=== PATIENT | female | born 1970 | race Caucasian/White ===

== ENCOUNTER → 2018-02-20 08:48 | Outpatient (CLI) | payer OTHER, SELFPAY ==
[2018-02-20 10:04] LABS: Add Manual Diff / Slide Review NO; Basophils Percent Auto 1.1 % (0-2); Eosinophils Percent Auto 2.3 % (2-4); Hematocrit 40.9 % (36-46); Hemoglobin 14.2 g/dL (12.0-16.0); Mean Corpuscular HGB Conc 34.6 % (30-36); Mean Corpuscular Hemoglobin 29.8 PG (26-34); Mean Corpuscular Volume 85.9 fL (80-100); Monocytes Percent Auto 6.1 % (3-14); Neutrophils Absolute Auto 4300 /uL (3000-5900); Neutrophils Percent Auto 63.5 % (50-75); Platelet Count 333 X10^3/uL (150-400); Red Blood Cell Count 4.76 X10^6/uL (4.0-5.2); Red Cell Distribution Width 12.4 % (11.6-14.8); White Blood Cell Count 6.8 X10^3/uL (4.5-11.0)
[2018-02-20 10:12] LABS: Alanine Aminotransferase 15 IU/L (9-52); Albumin 4.3 g/dL (3.5-5.0); Albumin Globulin Ratio 1.3 (1.0-2.8); Alkaline Phosphatase 65 U/L (38-126); Aspartate Aminotransferase 16 IU/L (14-36); BUN Creatinine Ratio 15.7 (6-22); Bilirubin Total 0.5 mg/dL (0.2-1.3); Bilirubin Unconjugated 0.2 mg/dL (0.0-1.1); Blood Urea Nitrogen 11 mg/dL (7-17); Calcium 9.1 mg/dL (8.4-10.2); Carbon Dioxide 28 mmol/L (22-32); Chloride 103 mmol/L (98-107); Estimated Glomerular Filt Rate > 60.0 mL/min (>60); Globulin 3.4 g/dL (1.7-4.1); Glucose 93 mg/dL (70-100); HEMOLYSIS < 15 (0-50); Potassium 4.3 mmol/L (3.4-5.1); Sodium 140 mmol/L (137-145); Total Protein 7.7 g/dL (6.3-8.2)
[2018-02-20 11:58] LABS: Hep C Virus Ab w/Reflex Quant NEGATIVE s/c (NEGATIVE); Hepatitis B Surface Antigen NEGATIVE s/c (NEGATIVE)
[2018-02-21 14:01] LABS: Hepatitis B Core Antibody Nonreactive (Nonreactive); Hepatitis B Surf Ab Qualitativ Nonreactive (Nonreactive)
[2018-02-23 13:29] LABS: QuantiFERON TB Negative (Negative)
== END ==
PROVIDERS: Family Provider Physician Assistant; PCP Physician Assistant; Visit Provider Dermatology
DX: L40.0 Psoriasis vulgaris (principal); L40.59 Other psoriatic arthropathy; L40.8 Other psoriasis
CPT/HCPCS: 36415; 80053; 80076; 85025; 86480; 86704; 86706; 86803; 87340

== ENCOUNTER → 2018-04-02 09:28 | Outpatient (CLI) | payer OTHER, SELFPAY ==
--- NOTE | 2018-04-02 09:29 | DI.MG.S_ITS ---
BILATERAL DIGITAL SCREENING MAMMOGRAM 3D/2D WITH CAD: 04/02/2018 CLINICAL: Routine screening. Comparison is made to exams dated: 03/06/2017 mammogram, 12/10/2014 mammogram, 12/07/2013 mammogram, and 12/04/2012 mammogram - [facility]. The tissue of both breasts is extremely dense, which lowers the sensitivity of mammography. Current study was also evaluated with a Computer Aided Detection (CAD) system. There is an asymmetry in the left breast middle depth central to the nipple seen on the craniocaudal view only. Finding is best noted on tomographic CC slice 36/79. There is possible architectural distortion associated with the asymmetry. No other significant masses, calcifications, or other findings are seen in either breast. IMPRESSION: INCOMPLETE: NEEDS ADDITIONAL IMAGING EVALUATION The asymmetry in the left breast is indeterminate. Additional views with possible ultrasound are recommended. This exam was interpreted at Station ID: [id number]. NOTE: For mammograms, a report in lay terms will be sent to the patient. Approximately 15% of breast malignancies will not be visualized mammographically. In the management of a palpable breast mass, a negative mammogram must not discourage biopsy of a clinically suspicious lesion. Electronically Signed By: Saran Stewart M.D. ecl/:04/03/2018 05:06:27 letter sent: Additional Imaging Needed ACR BI-RADS Category 0: Incomplete 3340F
== END ==
PROVIDERS: Family Provider Physician Assistant; PCP Physician Assistant; Visit Provider Physician Assistant
DX: Z12.31 Encounter for screening mammogram for malignant neoplasm of breast (principal)
CPT/HCPCS: 77063; 77067

== ENCOUNTER → 2018-04-18 09:19 | Outpatient (CLI) | payer OTHER, SELFPAY ==
--- NOTE | 2018-04-18 | DI.MG.S_ITS ---
UNILATERAL LEFT DIGITAL DIAGNOSTIC MAMMOGRAM 3D/2D WITH ADDITIONAL VIEWS: 04/18/2018 CLINICAL: Additional evaluation requested from prior study. Comparison is made to exams dated: 04/02/2018 mammogram, 03/06/2017 mammogram, and 12/10/2014 mammogram - [facility]. The tissue of left breast is extremely dense, which lowers the sensitivity of mammography. There is a benign oval asymmetry with an indistinct margin in the left breast middle depth central to the nipple seen on the craniocaudal view only. This is not seen in additional views. No other significant masses or calcifications are seen in the breast. IMPRESSION: There is no mammographic evidence of malignancy. A 1 year screening mammogram is recommended. This exam was interpreted at Station ID: [id number]. NOTE: For mammograms, a report in lay terms will be sent to the patient. Approximately 15% of breast malignancies will not be visualized mammographically. In the management of a palpable breast mass, a negative mammogram must not discourage biopsy of a clinically suspicious lesion. Electronically Signed By: Rudi kelly/jenna:04/18/2018 10:10:24 letter sent: Normal Exam ACR BI-RADS Category 2: Benign Finding(s) 3342F
== END ==
PROVIDERS: PCP Physician Assistant; Visit Provider Physician Assistant
DX: R92.8 Other abnormal and inconclusive findings on diagnostic imaging of breast (principal)
CPT/HCPCS: 77065; G0279

== ENCOUNTER → 2019-04-07 17:21 | Outpatient (CLI) | payer OTHER, SELFPAY ==
--- NOTE | 2019-04-07 | DI.MG.S_ITS ---
BILATERAL DIGITAL SCREENING MAMMOGRAM 3D/2D WITH CAD: 04/07/2019 CLINICAL: Routine screening. Comparison is made to exams dated: 04/02/2018 mammogram, 03/06/2017 mammogram, and 12/10/2014 mammogram - [facility]. The tissue of both breasts is heterogeneously dense. This may lower the sensitivity of mammography. Current study was also evaluated with a Computer Aided Detection (CAD) system. No significant masses, calcifications, or other findings are seen in either breast. There has been no significant interval change. IMPRESSION: NEGATIVE There is no mammographic evidence of malignancy. A 1 year screening mammogram is recommended. This exam was interpreted at Station ID: [id number]. NOTE: For mammograms, a report in lay terms will be sent to the patient. Approximately 15% of breast malignancies will not be visualized mammographically. In the management of a palpable breast mass, a negative mammogram must not discourage biopsy of a clinically suspicious lesion. Electronically Signed By: Rudi kelly/jenna:04/08/2019 11:50:31 letter sent: Normal Exam ACR BI-RADS Category 1: Negative 3341F
== END ==
PROVIDERS: PCP Physician Assistant; Visit Provider Physician Assistant
DX: Z12.31 Encounter for screening mammogram for malignant neoplasm of breast (principal)
CPT/HCPCS: 77063; 77067

== ENCOUNTER → 2020-03-03 08:52 | Outpatient (CLI) | payer OTHER, SELFPAY ==
[2020-03-03 10:34] LABS: Add Manual Diff / Slide Review NO; Basophils Absolute Auto 100 /uL (0-100); Basophils Percent Auto 0.9 % (0-2); Eosinophils Absolute Auto 200 /uL (0-450); Eosinophils Percent Auto 2.4 % (2-4); Hemoglobin 13.8 g/dL (12.0-16.0); Lymphocytes Absolute Auto 2100 /uL (1100-4500); Lymphocytes Percent Auto 24.7 % (25-40); Mean Corpuscular HGB Conc 33.8 % (30-36); Mean Corpuscular Hemoglobin 28.6 PG (26-34); Mean Corpuscular Volume 84.6 fL (80-100); Monocytes Absolute Auto 600 /uL (0-900); Neutrophils Absolute Auto 5500 /uL (1500-7000); Platelet Count 336 X10^3/uL (150-400); Red Blood Cell Count 4.84 X10^6/uL (4.0-5.2); Red Cell Distribution Width 12.6 % (11.6-14.8); White Blood Cell Count 8.4 X10^3/uL (4.5-11.0)
[2020-03-03 10:48] LABS: Alanine Aminotransferase 12 IU/L (<35); Albumin 4.2 g/dL (3.5-5.0); Albumin Globulin Ratio 1.2 (1.0-2.8); Alkaline Phosphatase 101 U/L (38-126); Aspartate Aminotransferase 21 IU/L (14-36); BUN Creatinine Ratio 12.9 (6-22); Bilirubin Total 0.5 mg/dL (0.2-1.3); Blood Urea Nitrogen 9 mg/dL (7-17); Calcium 9.3 mg/dL (8.4-10.2); Carbon Dioxide 24 mmol/L (22-32); Chloride 103 mmol/L (98-107); Cholesterol 252 mg/dL (140-199); Estimated Glomerular Filt Rate > 60.0 mL/min (>60); Globulin 3.5 g/dL (1.7-4.1); Glucose 88 mg/dL (70-100); HDL Cholesterol 60 mg/dL (40-60); HEMOLYSIS < 15 (0-50); LDL Cholesterol Calculated 150 mg/dL (<100); Potassium 4.4 mmol/L (3.4-5.1); Sodium 136 mmol/L (137-145); Total Protein 7.7 g/dL (6.3-8.2); Triglycerides 210 mg/dL (35-150)
[2020-03-03 11:18] LABS: TSH w/ Reflex to FT4 1.07 uIU/mL (0.47-4.68)
== END ==
PROVIDERS: PCP Family Medicine; Referring Provider Family Medicine; Visit Provider Family Medicine
DX: E78.2 Mixed hyperlipidemia (principal); Z13.29 Encounter for screening for other suspected endocrine disorder
CPT/HCPCS: 36415; 80053; 80061; 84443; 85025

== ENCOUNTER → 2020-05-25 16:07 | Outpatient (CLI) | payer OTHER, SELFPAY ==
--- NOTE | 2020-05-25 16:09 | DI.MG.S_ITS ---
BILATERAL DIGITAL SCREENING MAMMOGRAM 3D/2D WITH CAD: 05/25/2020 CLINICAL: Routine screening. Comparison is made to exams dated: 04/07/2019 mammogram, 04/18/2018 mammogram, 04/02/2018 mammogram, and 03/06/2017 mammogram - [facility]. The tissue of both breasts is heterogeneously dense. This may lower the sensitivity of mammography. Current study was also evaluated with a Computer Aided Detection (CAD) system. No significant masses, calcifications, or other findings are seen in either breast. There has been no significant interval change. IMPRESSION: NEGATIVE There is no mammographic evidence of malignancy. A 1 year screening mammogram is recommended. This exam was interpreted at Station ID: [id number]. NOTE: For mammograms, a report in lay terms will be sent to the patient. Approximately 15% of breast malignancies will not be visualized mammographically. In the management of a palpable breast mass, a negative mammogram must not discourage biopsy of a clinically suspicious lesion. Electronically Signed By: Remi leon/jenna:05/25/2020 16:45:57 letter sent: Normal Exam ACR BI-RADS Category 1: Negative 3341F
== END ==
PROVIDERS: PCP Family Medicine; Referring Provider Family Medicine; Visit Provider Family Medicine
DX: Z12.31 Encounter for screening mammogram for malignant neoplasm of breast (principal)
CPT/HCPCS: 77063; 77067

== ENCOUNTER → 2021-05-30 10:56 | Outpatient (CLI) | payer OTHER, SELFPAY ==
--- NOTE | 2021-05-30 | DI.MG.S_ITS ---
BILATERAL DIGITAL SCREENING MAMMOGRAM 3D/2D WITH CAD: 05/30/2021 CLINICAL: Routine screening. Comparison is made to exams dated: 05/25/2020 mammogram, 04/07/2019 mammogram, and 04/02/2018 mammogram - [facility]. There are scattered fibroglandular elements in both breasts. Current study was also evaluated with a Computer Aided Detection (CAD) system. No significant masses, calcifications, or other findings are seen in either breast. There has been no significant interval change. IMPRESSION: NEGATIVE There is no mammographic evidence of malignancy. A 1 year screening mammogram is recommended. This exam was interpreted at Station ID: [id number]. NOTE: For mammograms, a report in lay terms will be sent to the patient. Approximately 15% of breast malignancies will not be visualized mammographically. In the management of a palpable breast mass, a negative mammogram must not discourage biopsy of a clinically suspicious lesion. Electronically Signed By: Cinthia burden/jenna:05/30/2021 12:32:58 letter sent: Normal Exam ACR BI-RADS Category 1: Negative 3341F
== END ==
PROVIDERS: PCP Family Medicine; Referring Provider Family Medicine; Visit Provider Family Medicine
DX: Z12.31 Encounter for screening mammogram for malignant neoplasm of breast (principal)
CPT/HCPCS: 77063; 77067

== ENCOUNTER → 2022-06-05 07:51 | Outpatient (CLI) | payer OTHER, SELFPAY ==
--- NOTE | 2022-06-05 | DI.MG.S_ITS ---
BILATERAL DIGITAL SCREENING MAMMOGRAM 3D/2D WITH CAD: 06/05/2022 CLINICAL: Routine screening. Comparison is made to exams dated: 05/30/2021 mammogram, 05/25/2020 mammogram, and 04/07/2019 mammogram - [facility]. Both breasts are heterogeneously dense, which may obscure small masses (category c / 51-75% glandular tissue). Current study was also evaluated with a Computer Aided Detection (CAD) system. No significant masses, calcifications, or other findings are seen in either breast. There has been no significant interval change. IMPRESSION: NEGATIVE There is no mammographic evidence of malignancy. A 1 year screening mammogram is recommended. Based on the Tyrer Cuzick model (a risk assessment model) the patient's lifetime risk is 11.6% and her 10 year risk is 2.8%. According to the ACR, ACS, and NCCN guidelines, an annual breast MRI exam along with mammogram is recommended if the patient's lifetime risk is 20% or greater. This exam was interpreted at Station ID: [id number]. NOTE: For mammograms, a report in lay terms will be sent to the patient. Approximately 15% of breast malignancies will not be visualized mammographically. In the management of a palpable breast mass, a negative mammogram must not discourage biopsy of a clinically suspicious lesion. Electronically Signed By: Km miranda/jenna:06/05/2022 08:36:51 letter sent: Normal Exam ACR BI-RADS Category 1: Negative 3341F
== END ==
PROVIDERS: PCP Family Medicine; Referring Provider Family Medicine; Visit Provider Family Medicine
DX: Z12.31 Encounter for screening mammogram for malignant neoplasm of breast (principal)
CPT/HCPCS: 77063; 77067

== ENCOUNTER → 2022-07-20 09:40 | Outpatient (CLI) | payer OTHER, SELFPAY ==
[2022-07-20 10:58] LABS: COVID19 -Nasal RAPID Negative (Negative)
== END ==
PROVIDERS: PCP Family Medicine; Visit Provider Surgery
DX: Z01.812 Encounter for preprocedural laboratory examination (principal); Z20.822 Contact with and (suspected) exposure to COVID-19
CPT/HCPCS: 87635; C9803

== ENCOUNTER 2022-07-23 11:29 | Day surgery (SDC) | payer OTHER, SELFPAY ==
[2022-07-23 11:49] VITALS: BP 137/83; PULSE 85; RESP 16; TEMP 36.3; O2SAT 98; BMI 25.4
[2022-07-23] MEDS: LACTATED RINGERS 1,000 ML 42 ML IV (12:11)
--- NOTE | 2022-07-23 12:19 | PM.HP.1 ---
History of Present Illness History of Present Illness Date Patient Seen: 07/23/22 Time Patient Seen: 12:19 Chief complaint: SDC Narrative: Family history of colon cancer. 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 Grandmother Alzheimer disease Mother Cancer Father Parkinsons disease Cancer Social History: household members spouse Tobacco & Substance use: Tobacco type cigarettes Smoking Status Former smoker alcohol intake current alcohol intake frequency holiday/special occasion Substance Use Type does not use Meds Home Medications and Allergies Home Medications Medication Instructions Recorded Confirmed Type Massage Therapy 1 each topical .U1RFAGE #24 ea 08/27/18 04/27/20 Rx fluoxetine 20 mg capsule 20 mg PO QDAY #90 caps 12/27/21 07/23/22 Rx methotrexate sodium 7.5 mg tablet 7.5 mg PO QWEEK #12 tabs 12/27/21 07/23/22 Rx norethindrone acetate 1.5 See Rx Instructions .Route 12/27/21 07/23/22 Rx mg-ethinyl estradiol 30 mcg tablet .COMPLEX #63 tabs (Griselda) calcipotriene 0.005 % topical cream See Rx Instructions .Route 12/28/21 07/23/22 Rx .COMPLEX #60 caps Allergies Allergy/AdvReac Type Severity Reaction Status Date / Time No Known Drug Allergies Allergy Verified 07/23/22 11:22 Review of Systems Review of Systems ROS: Yes All systems reviewed with the patient and are negative except as otherwise documented Exam Vital Signs (past 8 hours): - 07/23/22 11:49 Temperature 97.4 F L Pulse Rate 85 Respiratory Rate 16 Blood Pressure 137/83 Pulse Oximetry 98 Oxygen Delivery Method Room Air Oxygen Delivery Method Room Air Const General: cooperative HENMT Head: normal to inspection Eyes General: appearance normal, both eyes and all related structures Neck Neck: normal visual inspection Chest Chest: normal inspection of the chest Resp Effort & Inspection: normal respiratory effort Cardio Rate: regular rate GI Inspection: normal to inspection Skin General: no rashes or lesions noted Neuro General: patient alert and patient awake Extrem General: normal to inspection and no pedal edema Psych Appearance: grossly normal Assessment & Plan Assessment & Plan narrative: 52-year-old female with a family history of colon cancer. Colonoscopy is pursued today. Time Spent With Patient Critical Care time: I spent a total of [] minutes of critical care time on this patient's care today; this time is exclusive of procedural time.
--- NOTE | 2022-07-23 12:20 | PM.PREOP ---
Pre-operative Note COVID-19 COVID-19 status: Negative Result date/Date tested (Pos, Neg/Pending): 07/20/22 Criteria for continued procedure: Possibility delay results in more complex future surgery or treatment Interval Note History & Physical reviewed/Exam performed by Physician: Yes Changes to H&P: No ASA Class (for procedural sedation): II
--- NOTE | 2022-07-23 12:44 | PM.OP.COLON ---
Operative Date/Time/Diagnoses Date of procedure: 07/23/22 Time of procedure: 12:44 Pre-op diagnosis: Family history of colon cancer Post-op diagnosis: same Procedure & Clinicians Study performed: Colonoscopy Same procedure as scheduled: Yes Indications: Family history of colon cancer Surgeon: Juan Miguel Cabrera Procedure Notes SCOAP/Timeout: Done Procedure in detail: After the risks and benefits were explained, written and verbal informed consent was obtained. The patient was brought into the procedure room and placed into the left lateral decubitus position. Please see anesthesia note for sedation details. Digital rectal examination was accomplished. The scope was introduced into the patient and advanced under direct visualization to the cecum as identified by the appendiceal orifice and ileocecal valve. The scope was slowly withdrawn to carefully examine the mucosa for any defects or lesions. Comprehensive imaging was accomplished throughout the rectum including the dentate line. The colon was decompressed, the scope was then removed from the patient who tolerated the procedure well. Pediatric colonoscope Bowel prep adequate Scope withdrawal time: 8 minutes Sedation minutes: 16 Specimen(s): none sent Complications: none Impression: No significant polyps mass lesions or inflammatory features identified throughout. Slightly tortuous left colon. Grade 1 internal hemorrhoids. Endoscopic diagnosis 1. Grade 1 internal hemorrhoids 2. Otherwise visually unremarkable colonoscopy Post-procedure Plan for aftercare: Repeat colonoscopy 5 years considering family history. Disposition: PACU
[2022-07-23 12:46] VITALS: BP 100/62; PULSE 781; RESP 10; TEMP 36.3; O2SAT 96
[2022-07-23 12:51] VITALS: BP 102/64; PULSE 74; RESP 13; O2SAT 97
[2022-07-23 12:56] VITALS: BP 112/71; PULSE 74; RESP 14; O2SAT 98
[2022-07-23 13:01] VITALS: BP 117/70; PULSE 75; RESP 13; TEMP 36.3; O2SAT 98
[2022-07-23 13:07] VITALS: BP 108/77; PULSE 69; RESP 14; TEMP 36.3; O2SAT 98
== END 2022-07-23 13:18 | disposition home or self-care (01) ==
PROVIDERS: PCP Family Medicine; Referring Provider Internal Medicine Gastroenterology; Visit Provider Internal Medicine Gastroenterology
PROC: 0DJD8ZZ Inspection of Lower Intestinal Tract, Via Natural or Artificial Opening Endoscopic (ICD-10-PCS; CPT 45378; principal; 2022-07-23 12:30)
DX: Z12.11 Encounter for screening for malignant neoplasm of colon (principal); Z80.0 Family history of malignant neoplasm of digestive organs; K64.0 First degree hemorrhoids
CPT/HCPCS: 45378; 81025; J3010

== ENCOUNTER → 2022-12-21 07:02 | Outpatient (CLI) | payer OTHER, SELFPAY ==
[2022-12-21 07:45] LABS: Add Manual Diff / Slide Review NO; Basophils Absolute Auto 100 /uL (0-100); Eosinophils Absolute Auto 100 /uL (0-450); Hematocrit 40.2 % (36-46); Hemoglobin 13.8 g/dL (12.0-16.0); Lymphocytes Absolute Auto 2000 /uL (1100-4500); Mean Corpuscular HGB Conc 34.3 % (30-36); Mean Corpuscular Hemoglobin 28.5 PG (26-34); Monocytes Absolute Auto 500 /uL (0-900); Monocytes Percent Auto 6.5 % (3-14); Neutrophils Absolute Auto 4700 /uL (1500-7000); Neutrophils Percent Auto 63.5 % (50-75); Platelet Count 315 X10^3/uL (150-400); Red Blood Cell Count 4.84 X10^6/uL (4.0-5.2); Red Cell Distribution Width 13.1 % (11.6-14.8); White Blood Cell Count 7.4 X10^3/uL (4.5-11.0)
[2022-12-21 08:19] LABS: Alanine Aminotransferase 16 IU/L (<35); Albumin 3.9 g/dL (3.5-5.0); Albumin Globulin Ratio 1.3 (1.0-2.8); Alkaline Phosphatase 74 U/L (38-126); Aspartate Aminotransferase 19 IU/L (14-36); BUN Creatinine Ratio 8.8 (6-22); Bilirubin Total 0.4 mg/dL (0.2-1.3); Blood Urea Nitrogen 6 mg/dL (7-17); Calcium 8.8 mg/dL (8.4-10.2); Carbon Dioxide 28 mmol/L (22-32); Chloride 102 mmol/L (98-107); Cholesterol 212 mg/dL (140-199); Estimated Glomerular Filt Rate > 60 mL/min (>60); Globulin 3.1 g/dL (1.7-4.1); Glucose 93 mg/dL (70-100); HDL Cholesterol 48 mg/dL (40-60); HEMOLYSIS < 15 (0-50); LDL Cholesterol Calculated 133 mg/dL (<100); Potassium 4.1 mmol/L (3.4-5.1); Sodium 137 mmol/L (137-145); Triglycerides 157 mg/dL (35-150)
[2022-12-21 08:44] LABS: TSH w/ Reflex to FT4 1.33 uIU/mL (0.47-4.68)
== END ==
PROVIDERS: PCP Family Medicine; Referring Provider Family Medicine; Visit Provider Family Medicine
DX: E78.2 Mixed hyperlipidemia (principal); L40.50 Arthropathic psoriasis, unspecified; Z13.29 Encounter for screening for other suspected endocrine disorder; Z79.899 Other long term (current) drug therapy
CPT/HCPCS: 36415; 80053; 80061; 84443; 85025

== ENCOUNTER 2023-01-13 21:21 | Emergency (ER) | payer OTHER, SELFPAY ==
[2023-01-13 21:32] VITALS: BP 165/123; PULSE 89; RESP 16; TEMP 36.7; O2SAT 98; BMI 22.3
[2023-01-13 21:34] VITALS: BP 163/82
--- NOTE | 2023-01-13 21:40 | DI.CT.S_ITS ---
PROCEDURE: CT HEAD/BRAIN WO CON INDICATIONS: headache/double vision TECHNIQUE: Noncontrast 4.5 mm thick angled axial sections acquired from the foramen magnum to the vertex, with coronal and sagittal reformats. For radiation dose reduction, the following was used: automated exposure control, adjustment of mA and/or kV according to patient size. COMPARISON: None. FINDINGS: Image quality: Excellent. CSF spaces: Basal cisterns are patent. No extra-axial fluid collections. Ventricles are normal in size and shape. Brain: No intracranial hemorrhage, mass, or mass effect. Vizcarra-white matter interface appears preserved. Skull and face: Calvarium and visualized facial bones are intact, without suspicious lesions. Sinuses: Visualized sinuses and mastoids are clear. IMPRESSION: 1. No acute intracranial abnormality. Dictated by: Rudi Mccoy M.D. on 01/13/2023 at 22:36 Approved by: Rudi Mccoy M.D. on 01/13/2023 at 22:37
--- NOTE | 2023-01-13 22:13 | ED_ITS ---
HPI - Headache General Chief Complaint: Headache Stated Complaint: T-2 headach/ double vison/ V Time Seen by Provider: 01/13/23 22:09 Source: patient Mode of arrival: Ambulatory Limitations: no limitations History of Present Illness HPI Narrative: Patient is a 52-year-old female. She is a self-reported history of migraine headaches. She does get headaches multiple times a month. Is normally on the right side. She normally takes Excedrin for the headaches. She is been on headache medications in the past but she is had some significant reactions to them. She finds that Excedrin normally takes care of her discomfort. She states yesterday she started to have a headache on the right. She stated that it felt just like her prior migraines. She took the Excedrin and did not completely take the headache away. He stated that earlier today she felt like the headache got somewhat worse. It was the same pain that she had yesterday just worsening. She denied any fevers. No neck pain. She stated that she started to feel like she was having some double vision. Her thought that she was not acting quite normal. They were driving to a wedding when this happened. The patient was able to make it through the wedding ceremony but came to the emergency department afterwards. At the time of my evaluation she states she actually feels much better than what she did prior to the wedding ceremony. Related Data Previous Rx's Medication Instructions Recorded Massage Therapy 1 each topical .V0LKFEM #24 ea 08/27/18 calcipotriene 0.005 % topical cream See Rx Instructions .Route 11/08/22 .COMPLEX #60 caps dextroamphetamine-amphetamine 5 mg See Rx Instructions .Route 01/09/23 tablet .COMPLEX #30 tabs fluoxetine 20 mg capsule 20 mg PO QDAY #90 caps 01/09/23 methotrexate sodium 7.5 mg tablet 7.5 mg PO QWEEK #12 tabs 01/09/23 norethindrone acetate 1.5 See Rx Instructions .Route 01/09/23 mg-ethinyl estradiol 30 mcg tablet .COMPLEX #63 tabs (Griselda) Allergies Allergy/AdvReac Type Severity Reaction Status Date / Time No Known Drug Allergies Allergy Verified 12/11/22 15:28 Review of Systems Constitutional Constitutional: Reports system reviewed and no additional complaints, except as documented Eyes Eyes: Reports system reviewed and no additional complaints, except as documented Integumentary/Breasts Skin/Breast: Reports system reviewed and no additional complaints, except as documented Neurologic Neurologic: Reports system reviewed and no additional complaints, except as documented Hematologic/Lymphatic On Anticoagulants: No Patient History Medical History ADD (attention deficit disorder) (Unknown) 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 Grandmother Alzheimer disease Mother Cancer Father Parkinsons disease Cancer Social History household members: spouse Smoking Status: Former smoker alcohol intake: current substance use type: does not use Smoking Status: Former smoker alcohol intake frequency: holidays/special occasions only Substance Use Type: does not use Exam Initial Vital Signs Initial Vital Signs: Vital Signs Temperature 98.1 F 01/13/23 21:32 Pulse Rate 89 01/13/23 21:32 Respiratory Rate 16 01/13/23 21:32 Blood Pressure 165/123 H 01/13/23 21:32 Pulse Oximetry 98 01/13/23 21:32 Oxygen Delivery Method Room Air 01/13/23 21:32 Const General: cooperative, healthy appearing and comfortable HENNH Head: normal to inspection and normocephalic Resp Effort & Inspection: normal respiratory effort Cardio Rate: regular rate Neuro General: patient alert, patient awake, patient oriented x3 and moves all extremities Cognition: normal cognition Speech: speech normal Gait: normal gait Extrem General: normal to inspection and capillary refill normal Course Orders Ordered: ED Orders 01/13/23 21:40 CT head/brain wo con Stat Vital Signs Vital signs: Vital Signs - 8 hr 01/13/23 21:32 01/13/23 21:34 Temperature 98.1 F Pulse Rate 89 Respiratory Rate 16 Blood Pressure 165/123 H 163/82 H Pulse Oximetry 98 Oxygen Delivery Method Room Air MDM - Headache Imaging Data CT scan - head: Radiologist's Impression: PROCEDURE:? CT HEAD/BRAIN WO CON ? INDICATIONS:? headache/double vision ? TECHNIQUE:? Noncontrast 4.5 mm thick angled axial sections acquired from the foramen magnum to the vertex, with coronal and sagittal reformats.? For radiation dose reduction, the following was used:? automated exposure control, adjustment of mA and/or kV according to patient size.? ? COMPARISON:? None. ? FINDINGS:? Image quality:? Excellent.? ? CSF spaces:? Basal cisterns are patent.? No extra-axial fluid collections.? Ventricles are normal in size and shape.? ? Brain:? No intracranial hemorrhage, mass, or mass effect.? Vizcarra-white matter interface appears preserved.? ? Skull and face:? Calvarium and visualized facial bones are intact, without suspicious lesions.? ? Sinuses:? Visualized sinuses and mastoids are clear.? ? IMPRESSION:? ? 1.? No acute intracranial abnormality. [facility] Narrative Medical decision making narrative: Patient states that her headache is greatly improving. She did not want any medications here in the ER. Her head CT is unremarkable. Patient has clear speech. No balance issues. Otherwise nonfocal neurologic exam. I did discuss the findings of the CT scan with the patient. Will discharge patient home with return precautions. Patient states she is comfortable going home. Discharge Plan Departure Patient Disposition: Home Clinical Impression: Headache Instructions: DI for Headache Activity Restrictions/Additional Instructions: I do recommend that you take all of your medications as directed. Contact your primary doctor for a follow-up. Return to the emergency department for new or worsening symptoms. Prescriptions: No Action Massage Therapy 1 each topical .[id number] Qty: 24 0RF Rx Instructions: Massage therapy evaluate and treat calcipotriene 0.005 % cream See Rx Instructions .ROUTE .COMPLEX Qty: 60 0RF Dose Instruction: APPLY TO AFFECTED AREAS TWICE A DAY Rx Instructions: APPLY TO AFFECTED AREAS TWICE A DAY norethindrone ac-eth estradiol [Griselda] 1.5-30 mg-mcg tablet See Rx Instructions .ROUTE .COMPLEX Qty: 63 11RF Dose Instruction: TAKE 1 TABLET BY MOUTH DAILY Rx Instructions: TAKE 1 TABLET BY MOUTH DAILY fluoxetine 20 mg capsule 20 mg PO QDAY Qty: 90 3RF methotrexate sodium 7.5 mg tablet 7.5 mg PO QWEEK Qty: 12 3RF dextroamphetamine-amphetamine 5 mg tablet See Rx Instructions .ROUTE .COMPLEX Qty: 30 0RF Rx Instructions: Take 1/2 tablet by mouth twice daily as needed for ADD Referrals: Thierno Marsh DO [Primary Care Provider] - Stand Alone Forms: Patient Portal/API
== END 2023-01-13 23:01 | disposition home or self-care (01) ==
PROVIDERS: Emergency Provider Emergency Medicine; PCP Family Medicine
DX: R51.9 Headache, unspecified (principal)
CPT/HCPCS: 70450; 99283

== ENCOUNTER → 2023-05-17 11:39 | Outpatient (CLI) | payer OTHER, SELFPAY ==
[2023-05-17 13:17] LABS: Appearance Urine UA CLEAR; Bilirubin Urine UA NEGATIVE (NEGATIVE); Color Urine UA YELLOW; Glucose Urine UA NEGATIVE (Negative); Ketones Urine UA NEGATIVE (NEGATIVE); Leukocyte Esterase Urine UA NEGATIVE (NEGATIVE); Nitrite Urine UA NEGATIVE (Negative); Occult Blood Urine UA 2+ (Negative); Protein Urine UA NEGATIVE (Negative); Specific Gravity Urine UA 1.015 (1.000-1.035); Urobilinogen Urine UA 0.2 E.U./dL (0.2)
[2023-05-17 13:32] LABS: Bacteria Urine Occasional (0-1); Culture Indicated Urine Cult Not Indicated; RBC Urine 1-5/HPF (0-5/HPF); Squamous Epithelial Cell Urine 1-5 /HPF (0-5/HPF); WBC Urine 0-1/HPF (0-5/HPF)
== END ==
PROVIDERS: PCP Family Medicine; Referring Provider Family Medicine; Visit Provider Family Medicine
DX: R32 Unspecified urinary incontinence (principal)
CPT/HCPCS: 81001

== ENCOUNTER → 2023-05-24 07:15 | Outpatient (CLI) | payer OTHER, SELFPAY ==
[2023-05-24 07:55] LABS: Alanine Aminotransferase 12 IU/L (<35); Albumin 4.1 g/dL (3.5-5.0); Albumin Globulin Ratio 1.1 (1.0-2.8); Alkaline Phosphatase 81 U/L (38-126); Aspartate Aminotransferase 20 IU/L (14-36); BUN Creatinine Ratio 16.2 (6-22); Bilirubin Total 0.6 mg/dL (0.2-1.3); Blood Urea Nitrogen 11 mg/dL (7-17); Calcium 9.1 mg/dL (8.4-10.2); Carbon Dioxide 26 mmol/L (22-32); Chloride 102 mmol/L (98-107); Cholesterol 228 mg/dL (140-199); Estimated Glomerular Filt Rate > 60 mL/min (>60); Globulin 3.7 g/dL (1.7-4.1); Glucose 98 mg/dL (70-100); HDL Cholesterol 52 mg/dL (40-60); HEMOLYSIS 19 (0-50); LDL Cholesterol Calculated 144 mg/dL (<100); Potassium 4.2 mmol/L (3.4-5.1); Sodium 135 mmol/L (137-145); Total Protein 7.8 g/dL (6.3-8.2); Triglycerides 161 mg/dL (35-150)
[2023-05-24 08:36] LABS: Add Manual Diff / Slide Review NO; Basophils Absolute Auto 100 /uL (0-100); Eosinophils Absolute Auto 200 /uL (0-450); Eosinophils Percent Auto 2.1 % (2-4); Hematocrit 40.9 % (36-46); Hemoglobin 13.8 g/dL (12.0-16.0); Lymphocytes Absolute Auto 2300 /uL (1100-4500); Lymphocytes Percent Auto 29.9 % (25-40); Mean Corpuscular HGB Conc 33.6 % (30-36); Mean Corpuscular Volume 86.3 fL (80-100); Monocytes Absolute Auto 500 /uL (0-900); Monocytes Percent Auto 6.7 % (3-14); Neutrophils Absolute Auto 4700 /uL (1500-7000); Neutrophils Percent Auto 60.3 % (50-75); Platelet Count 373 X10^3/uL (150-400); Red Blood Cell Count 4.74 X10^6/uL (4.0-5.2); Red Cell Distribution Width 13.1 % (11.6-14.8); White Blood Cell Count 7.7 X10^3/uL (4.5-11.0)
[2023-05-24 09:09] LABS: Erythrocyte Sedimentation Rate 10 MM/HR (0-20)
[2023-05-24 09:17] LABS: TSH w/ Reflex to FT4 1.17 uIU/mL (0.47-4.68)
[2023-05-24 09:23] LABS: Vitamin B12 Reflex MMA if <400 173 pg/mL (239-931)
--- NOTE | 2023-05-24 11:42 | DI.MRI.S_ITS ---
PROCEDURE: MR HEAD/BRAIN WO/W CON INDICATIONS: look for MS plaques TECHNIQUE: Noncontrast sagittal and axial FLAIR, axial and coronal T2 fast spin echo, axial VIBE, axial gradient echo, axial diffusion and ADC through the brain. After the administration of contrast, axial and coronal and sagittal VIBE with fat saturation through the brain. COMPARISON: None. FINDINGS: Image quality: Excellent. CSF spaces: Ventricles are normal in size and shape. Basal cisterns are patent. No extra-axial fluid collections. Brain: No intracranial bleeds or mass effects. Vizcarra-white matter interface appears intact. Scattered tiny T2/FLAIR hyperintensities within the supratentorial white matter. No abnormal intracranial enhancement. Diffusion weighted images show no acute ischemic insults. Brainstem appears normal. Normal intravascular flow voids are present. Skull and face: Calvarial marrow signal is normal. Orbits appear normal. Sinuses: Sinuses and mastoids are clear. IMPRESSION: 1. There are scattered T2/FLAIR hyperintensities within the supratentorial white matter. These are nonspecific and do not have the typical appearance of demyelinating plaques. Differential includes chronic microvascular ischemic changes versus a demyelinating process. No enhancement or restricted diffusion. 2. No acute intracranial abnormalities. Dictated by: Domenic Robles M.D. on 05/24/2023 at 13:41 Approved by: Domenic Robles M.D. on 05/24/2023 at 13:45
[2023-05-25 07:44] LABS: RPR Screen Non Reactive (Non Reactive)
[2023-05-27 23:58] LABS: Methylmalonic Acid,Serum 766 nmol/L (0-378)
== END ==
PROVIDERS: PCP Family Medicine; Referring Provider Family Medicine; Visit Provider Family Medicine
DX: G35 Multiple sclerosis (principal); G43.909 Migraine, unspecified, not intractable, without status migrainosus; M21.372 Foot drop, left foot; R32 Unspecified urinary incontinence; L40.50 Arthropathic psoriasis, unspecified; F98.8 Other specified behavioral and emotional disorders with onset usually occurring in childhood and adolescence; E78.2 Mixed hyperlipidemia; Z79.899 Other long term (current) drug therapy
CPT/HCPCS: 36415; 70553; 80053; 80061; 82607; 83921; 84443; 85025; 85651; 86592; A9579

== ENCOUNTER → 2023-06-06 15:15 | Outpatient (CLI) | payer OTHER, SELFPAY ==
--- NOTE | 2023-06-06 15:30 | DI.MRI.S_ITS ---
PROCEDURE: MR LUMBAR SPINE WO/W CON INDICATIONS: Look for MS Plaques TECHNIQUE: Noncontrast sagittal T1 spin echo and T2 fast spin echo, sagittal STIR, axial T1 and T2 fast spin echo through the lumbar spine. In cases with scoliosis, additional coronal T2 fast spin echo may be performed. After the administration of contrast, sagittal and axial T1 spin echo with fat saturation through the lumbar spine. COMPARISON: None. FINDINGS: Image quality: Excellent. Alignment and curvature: There is normal bony alignment. Marrow: Marrow is of normal overall signal. No acute vertebral body compression fractures. No suspicious marrow enhancement. Spinal cord: Conus medullaris terminates at the L1-L2 level. Visualized spinal cord demonstrates normal signal, without suspicious enhancement. Paraspinous soft tissues: No paravertebral masses or abnormal enhancement. T12-L1: Normal appearance. L1-L2: Normal appearance. L2-L3: Normal appearance. L3-L4: Facet arthropathy. No central canal or neural foraminal stenosis. L4-L5: Disc desiccation. Minimal disc bulge. Facet arthropathy and thickened ligamentum flavum. No central canal or neural foraminal stenosis. L5-S1: Facet arthropathy. No central canal or neural foraminal stenosis. IMPRESSION: 1. No evidence of demyelinating disease. 2. Mild degenerative changes of the lumbar spine. Dictated by: Domenic Robles M.D. on 06/07/2023 at 9:00 Approved by: Domenic Robles M.D. on 06/07/2023 at 9:07
--- NOTE | 2023-06-06 15:30 | DI.MRI.S_ITS ---
PROCEDURE: MR CERVICAL SPINE WO/W CON INDICATIONS: Look for MS Plaques TECHNIQUE: Noncontrast sagittal T1 spin echo and T2 fast spin echo, sagittal STIR, sagittal PD fast spin echo, foraminal oblique sagittal T2 fast spin echo, axial gradient echo or T2 fast spin echo through the cervical spine. After the administration of contrast, sagittal and axial T1 spin echo with fat saturation through the cervical spine. COMPARISON: None. FINDINGS: Image quality: Excellent. Alignment and curvature: Straightening of the normal cervical lordosis. Marrow: Marrow demonstrates normal overall signal. Spinal cord: Visualized spinal cord is normal in size, without white matter lesions. No suspicious intramedullary enhancement. No cerebellar tonsillar herniation. Paraspinous soft tissues: No paravertebral masses or suspicious enhancement. C2-C3: Normal appearance. C3-C4: Normal appearance. C4-C5: Normal appearance. C5-C6: Disc desiccation and posterior disc osteophyte complex. Mild central canal stenosis. Facet and uncovertebral arthropathy. Mild left neural foraminal stenosis. No right neural foraminal stenosis. C6-C7: No central canal or neural foraminal stenosis. C7-T1: No central canal or neural foraminal stenosis. IMPRESSION: 1. No evidence of demyelinating plaques. 2. Mild degenerative changes of the cervical spine. Dictated by: Domenic Robles M.D. on 06/07/2023 at 8:28 Approved by: Domenic Robles M.D. on 06/07/2023 at 8:31
--- NOTE | 2023-06-06 15:30 | DI.MRI.S_ITS ---
PROCEDURE: MR THORACIC SPINE WO/W CON INDICATIONS: Look for MS Plaques TECHNIQUE: Noncontrast sagittal T1 spin echo and T2 fast spin echo, sagittal STIR, axial T1 and T2 fast spin echo through the thoracic spine. After the administration of contrast, axial and sagittal T1 spin echo with fat saturation through the thoracic spine. COMPARISON: None. FINDINGS: Image quality: Excellent. Alignment and curvature: There is normal bony alignment. Marrow: Marrow is of normal overall signal. No acute vertebral body compression fractures. Spinal cord: Visualized spinal cord is of normal signal and size, without abnormal enhancement. Paraspinous soft tissues: No paravertebral masses or abnormal enhancement. Miscellaneous: Disc desiccation height loss. Central canal and foramina appear widely patent at all scanned levels. IMPRESSION: No evidence of demyelinating disease. Dictated by: Domenic Robles M.D. on 06/07/2023 at 8:33 Approved by: Domenic Rolbes M.D. on 06/07/2023 at 8:36
== END ==
PROVIDERS: PCP Family Medicine; Referring Provider Family Medicine; Visit Provider Family Medicine
DX: G35 Multiple sclerosis (principal); M21.372 Foot drop, left foot; R32 Unspecified urinary incontinence; M47.812 Spondylosis without myelopathy or radiculopathy, cervical region; M47.816 Spondylosis without myelopathy or radiculopathy, lumbar region; M47.817 Spondylosis without myelopathy or radiculopathy, lumbosacral region
CPT/HCPCS: 72156; 72157; 72158; A9579

== ENCOUNTER → 2023-06-08 07:50 | Outpatient (CLI) | payer OTHER, SELFPAY ==
--- NOTE | 2023-06-08 | DI.MG.S_ITS ---
BILATERAL DIGITAL SCREENING MAMMOGRAM 3D/2D WITH CAD: 06/08/2023 CLINICAL: Routine screening. Comparison is made to exams dated: 06/05/2022 mammogram, 05/30/2021 mammogram, and 05/25/2020 mammogram - [facility]. Both breasts are heterogeneously dense, which may obscure small masses (category c / 51-75% glandular tissue). Current study was also evaluated with a Computer Aided Detection (CAD) system. There is an asymmetry in the left breast middle depth superior region seen on the mediolateral oblique view only. No other significant masses, calcifications, or other findings are seen in either breast. IMPRESSION: INCOMPLETE: NEEDS ADDITIONAL IMAGING EVALUATION The asymmetry in the left breast is indeterminate. Additional views with possible ultrasound are recommended. Based on the Tyrer Cuzick model (a risk assessment model) the patient's lifetime risk is 11.6% and her 10 year risk is 3.0%. According to the ACR, ACS, and NCCN guidelines, an annual breast MRI exam along with mammogram is recommended if the patient's lifetime risk is 20% or greater. This exam was interpreted at Station ID: [id number]. NOTE: For mammograms, a report in lay terms will be sent to the patient. Approximately 15% of breast malignancies will not be visualized mammographically. In the management of a palpable breast mass, a negative mammogram must not discourage biopsy of a clinically suspicious lesion. Electronically Signed By: Lexi whitlock/jenna:06/10/2023 14:53:27 letter sent: Additional Imaging Needed ACR BI-RADS Category 0: Incomplete 3340F
== END ==
PROVIDERS: PCP Family Medicine; Referring Provider Family Medicine; Visit Provider Family Medicine
DX: Z12.31 Encounter for screening mammogram for malignant neoplasm of breast (principal)
CPT/HCPCS: 77063; 77067

== ENCOUNTER → 2023-06-20 09:21 | Outpatient (CLI) | payer OTHER, SELFPAY ==
--- NOTE | 2023-06-20 | DI.MG.S_ITS ---
UNILATERAL LEFT DIGITAL DIAGNOSTIC MAMMOGRAM 3D/2D WITH ADDITIONAL VIEWS: 06/20/2023 CLINICAL: Additional evaluation requested from prior study. Comparison is made to exams dated: 06/08/2023 mammogram, 06/05/2022 mammogram, and 05/30/2021 mammogram - [facility]. The left breast is heterogeneously dense, which may obscure small masses (category c / 51-75% glandular tissue). There is an asymmetry in the left breast middle depth superior region seen on the mediolateral oblique view only. No other significant masses or calcifications are seen in the breast. IMPRESSION: INCOMPLETE: NEEDS ADDITIONAL IMAGING EVALUATION The asymmetry in the left breast is indeterminate. An ultrasound is recommended. Based on the Tyrer Cuzick model (a risk assessment model) the patient's lifetime risk is 11.6% and her 10 year risk is 3.0%. According to the ACR, ACS, and NCCN guidelines, an annual breast MRI exam along with mammogram is recommended if the patient's lifetime risk is 20% or greater. This exam was interpreted at Station ID: [id number]. NOTE: For mammograms, a report in lay terms will be sent to the patient. Approximately 15% of breast malignancies will not be visualized mammographically. In the management of a palpable breast mass, a negative mammogram must not discourage biopsy of a clinically suspicious lesion. Electronically Signed By: Km Delgado M.D. lc/:06/20/2023 10:47:44 ACR BI-RADS Category 0: Incomplete 3340F
--- NOTE | 2023-06-20 09:22 | DI.US.S_ITS ---
ULTRASOUND OF LEFT BREAST AND AXILLA: 06/20/2023 CLINICAL: Patient returns today to evaluate a focal asymmetry in the left breast. Comparison is made to exams dated: 06/20/2023 mammogram, 06/08/2023 mammogram, 06/05/2022 mammogram, 05/30/2021 mammogram, 05/25/2020 mammogram, and 04/07/2019 mammogram - [facility]. Color flow and real-time ultrasound of the left breast axilla were performed. Vizcarra scale images of the real-time examination were reviewed. There is a possible 0.3 cm x 0.4 cm x 0.3 cm complicated cyst in the left breast at 12 o'clock anterior depth 3 cm from the nipple. This correlates with mammography findings. No significant abnormalities were seen sonographically in the left axilla. IMPRESSION: PROBABLY BENIGN The possible 0.3 cm x 0.4 cm x 0.3 cm complicated cyst in the left breast is probably benign. A follow-up mammogram and an ultrasound in 6 months is recommended to demonstrate stability. This exam was interpreted at Station ID: [id number]. Electronically Signed By: Km Delgado M.D. /:06/20/2023 10:49:11 letter sent: Followup Recommended Ultrasound BI-RADS: 3 Probably benign
== END ==
PROVIDERS: PCP Family Medicine; Referring Provider Family Medicine; Visit Provider Family Medicine
DX: R92.8 Other abnormal and inconclusive findings on diagnostic imaging of breast (principal); N60.02 Solitary cyst of left breast
CPT/HCPCS: 76642; 77065; G0279

== ENCOUNTER → 2023-12-26 08:37 | Outpatient (CLI) | payer OTHER, SELFPAY ==
--- NOTE | 2023-12-26 | DI.MG.S_ITS ---
UNILATERAL LEFT DIGITAL DIAGNOSTIC MAMMOGRAM 3D/2D: 12/26/2023 CLINICAL: Patient returns for a 6 month follow up of the left breast. Comparison is made to exams dated: 06/20/2023 mammogram, 06/08/2023 mammogram, 06/05/2022 mammogram, and 05/30/2021 mammogram - [facility]. The left breast is heterogeneously dense, which may obscure small masses (category c / 51-75% glandular tissue). There is a stable asymmetry in the left breast anterior depth superior region seen on the mediolateral oblique view only. No other significant masses or calcifications are seen in the breast. IMPRESSION: INCOMPLETE: NEEDS ADDITIONAL IMAGING EVALUATION The stable asymmetry in the left breast is indeterminate. An ultrasound is recommended. Based on the Tyrer Cuzick model (a risk assessment model) the patient's lifetime risk is 11.6% and her 10 year risk is 3.0%. According to the ACR, ACS, and NCCN guidelines, an annual breast MRI exam along with mammogram is recommended if the patient's lifetime risk is 20% or greater. This exam was interpreted at Station ID: [id number]. NOTE: For mammograms, a report in lay terms will be sent to the patient. Approximately 15% of breast malignancies will not be visualized mammographically. In the management of a palpable breast mass, a negative mammogram must not discourage biopsy of a clinically suspicious lesion. Electronically Signed By: Km miranda/jenna:12/26/2023 09:48:37 ACR BI-RADS Category 0: Incomplete 3340F
--- NOTE | 2023-12-26 08:38 | DI.US.S_ITS ---
LIMITED ULTRASOUND OF LEFT BREAST AND AXILLA: 12/26/2023 CLINICAL: Pt returns for 6mo f/u lt breast. Comparison is made to exams dated: 12/26/2023 mammogram, 06/20/2023 ultrasound, 06/20/2023 mammogram, 06/08/2023 mammogram, 06/05/2022 mammogram, and 05/30/2021 mammogram - [facility]. Real-time ultrasound of the left breast 12 o'clock, and axilla regions was performed. Vizcarra scale images of the real-time examination were reviewed. No significant abnormalities were seen sonographically in the left breast. IMPRESSION: PROBABLY BENIGN There is no abnormality seen in the left breast to correspond with the mammography finding and previous ultrasound finding. A follow-up mammogram in 6 months is recommended to demonstrate stability. This exam was interpreted at Station ID: [id number]. Electronically Signed By: Km Delgado M.D. lc/:12/26/2023 09:50:06 letter sent: Followup Recommended Ultrasound BI-RADS: 3 Probably benign
== END ==
LOC: MAMMO 08:37
PROVIDERS: PCP Family Medicine; Referring Provider Family Medicine; Visit Provider Family Medicine
DX: R92.8 Other abnormal and inconclusive findings on diagnostic imaging of breast (principal); R92.332 Mammographic heterogeneous density, left breast
CPT/HCPCS: 76642; 77065; G0279

== ENCOUNTER → 2024-07-13 08:26 | Outpatient (CLI) | payer OTHER, SELFPAY ==
--- NOTE | 2024-07-13 | DI.MG.S_ITS ---
BILATERAL DIGITAL DIAGNOSTIC MAMMOGRAM 3D/2D SHORT-TERM FOLLOW-UP: 07/13/2024 CLINICAL: Short term follow up of the left breast, due for bilateral imaging. Comparison is made to exams dated: 12/26/2023 mammogram, 06/20/2023 mammogram, 06/08/2023 mammogram, and 06/05/2022 mammogram - [facility]. The breasts are heterogeneously dense, which may obscure small masses (category c / 51-75% glandular tissue). There is a stable asymmetry in the left breast anterior depth upper region seen on the mediolateral oblique view only, not significantly changed since 06/20/2023. No prior ultrasound correlate identified. No other significant masses, calcifications, or other findings are seen in either breast. IMPRESSION: PROBABLY BENIGN Left breast asymmetry in the anterior upper region, stable since June 2023 and without prior ultrasound correlate. Finding is probably benign. Recommend follow-up mammogram in 12 months to demonstrate 2 year stability. Patient will be due for bilateral mammogram at that time. Findings and recommendations were conveyed to the patient during today's evaluation. Based on the Tyrer Cuzick model (a risk assessment model) the patient's lifetime risk is 11.7% and her 10 year risk is 3.2%. According to the ACR, ACS, and NCCN guidelines, an annual breast MRI exam along with mammogram is recommended if the patient's lifetime risk is 20% or greater. This exam was interpreted at Station ID: [id number]. NOTE: For mammograms, a report in lay terms will be sent to the patient. Approximately 15% of breast malignancies will not be visualized mammographically. In the management of a palpable breast mass, a negative mammogram must not discourage biopsy of a clinically suspicious lesion. Electronically Signed By: Leandra Jim M.D., Ph.D. eb/:07/13/2024 09:19:12 letter sent: Followup Recommended ACR BI-RADS Category 3: Probably Benign
== END ==
PROVIDERS: PCP Family Medicine; Referring Provider Family Medicine; Visit Provider Family Medicine
DX: R92.8 Other abnormal and inconclusive findings on diagnostic imaging of breast (principal); R92.333 Mammographic heterogeneous density, bilateral breasts
CPT/HCPCS: 77066; G0279

== ENCOUNTER → 2024-08-18 07:09 | Outpatient (CLI) | payer OTHER, SELFPAY ==
[2024-08-18 07:45] LABS: Add Manual Diff / Slide Review NO; Basophils Absolute Auto 100 /uL (0-100); Basophils Percent Auto 1.3 % (0-2); Eosinophils Absolute Auto 200 /uL (0-450); Eosinophils Percent Auto 2.1 % (2-4); Hematocrit 41.6 % (36-46); Hemoglobin 14.2 g/dL (12.0-16.0); Lymphocytes Absolute Auto 2100 /uL (1100-4500); Lymphocytes Percent Auto 28.5 % (25-40); Mean Corpuscular HGB Conc 34.3 % (30-36); Mean Corpuscular Hemoglobin 28.8 PG (26-34); Mean Corpuscular Volume 84.2 fL (80-100); Monocytes Absolute Auto 500 /uL (0-900); Monocytes Percent Auto 7.4 % (3-14); Neutrophils Absolute Auto 4500 /uL (1500-7000); Neutrophils Percent Auto 60.7 % (50-75); Platelet Count 376 X10^3/uL (150-400); Red Blood Cell Count 4.94 X10^6/uL (4.0-5.2); Red Cell Distribution Width 12.5 % (11.6-14.8); White Blood Cell Count 7.4 X10^3/uL (4.5-11.0)
[2024-08-18 08:21] LABS: Alanine Aminotransferase 15 IU/L (<35); Albumin 4.2 g/dL (3.5-5.0); Albumin Globulin Ratio 1.3 (1.0-2.8); Alkaline Phosphatase 81 U/L (38-126); Aspartate Aminotransferase 23 IU/L (14-36); BUN Creatinine Ratio 8.6 (6-22); Bilirubin Total 0.6 mg/dL (0.2-1.3); Blood Urea Nitrogen 7 mg/dL (7-17); Calcium 8.9 mg/dL (8.4-10.2); Carbon Dioxide 25 mmol/L (22-32); Chloride 104 mmol/L (98-107); Cholesterol 248 mg/dL (140-199); Estimated Glomerular Filt Rate > 60 mL/min (>60); Globulin 3.2 g/dL (1.7-4.1); Glucose 96 mg/dL (70-100); HDL Cholesterol 51 mg/dL (40-60); HEMOLYSIS < 15 (0-50); LDL Cholesterol Calculated 168 mg/dL (<100); Potassium 3.9 mmol/L (3.4-5.1); Sodium 136 mmol/L (137-145); Total Protein 7.4 g/dL (6.3-8.2); Triglycerides 146 mg/dL (35-150)
[2024-08-18 08:51] LABS: TSH w/ Reflex to FT4 1.86 uIU/mL (0.47-4.68)
[2024-08-18 09:10] LABS: Vitamin B12 601 pg/mL (239-931)
== END ==
PROVIDERS: PCP Family Medicine; Referring Provider Family Medicine; Visit Provider Family Medicine
DX: Z13.29 Encounter for screening for other suspected endocrine disorder (principal); M21.372 Foot drop, left foot; E78.2 Mixed hyperlipidemia; L40.50 Arthropathic psoriasis, unspecified; F41.9 Anxiety disorder, unspecified; F98.8 Other specified behavioral and emotional disorders with onset usually occurring in childhood and adolescence; Z79.899 Other long term (current) drug therapy
CPT/HCPCS: 36415; 80053; 80061; 82306; 82607; 84443; 85025